=== PATIENT | female | born 1955 | race Caucasian/White ===

== ENCOUNTER → 2016-06-18 | Outpatient (CLI) | payer OTHER ==
[~2016-06-18] MED LIST: /FEXO18TA OR; CELE40TA OR; CETI5TAB2 OR; IBUP600T OR; LEVOXYL25 MCG OR; LORA2TAB OR; TRAM50TA2 OR; VENTAER IN
--- NOTE | 2016-06-18 12:12 | ECGEPIP ---
Stationary ECG Study [facility] Test Date: 2016-06-18 Pat Name: FAMILIA VILLALOBOS Department: Room: - Gender: F [employer] Hand: [facility] : 1955 Requested By: Sachi Ibanez Order Number: [id number] Reading MD: [place] Woodward Measurements Intervals [place] Rate: 67 P: 65 VA: 181 QRS: -33 QRSD: 94 T: 44 QT: 410 QTc: 434 Interpretive Statements SINUS RHYTHM lowvoltage PRECORD LEADS NEW LEFT AXIS DEVIATION ANTERIOR MYOCARDIAL INFARCTION, PROBABLY OLD suspected PRWP MORE SO THAN 09/20/13 Electronically Signed On 06-18-2016 12:12:21 EST by [place] Woodward
--- NOTE | 2016-06-18 12:26 | REP ---
Chest two views HISTORY: Chest pain Comparison: 09/08/2012 The lungs are clear. The heart is normal in size. The pulmonary vasculature is normal in appearance. The bony structure is intact. IMPRESSION: No acute disease. Signed by Vipin Atkins MD 06/18/2016 12:17 P
== END ==
LOC: M EKG 11:44
PROVIDERS: ATTEND Nurse Practitioner Adult Health
DX: R07.89 Other chest pain (principal)

== ENCOUNTER 2016-10-07 21:38 | Emergency (ER) | payer OTHER ==
[~2016-10-07] VITALS: Ht 167.6 cm; Wt 90.5 kg
[2016-10-07] MEDS ORDERED: ASPIRIN 81 MG CHEW TABLET PO ONE (22:30)
[2016-10-07] MEDS ORDERED: PANTOPRAZOLE 40MG INJ (PROTONIX) (C9113) IV ONE (22:30)
[2016-10-07 23:02] LABS: BASO # 0.1 K/mm3 (0.0-0.2); BASO % 0.7 % (0.0-1.0); EOS # 0.2 K/mm3 (0.0-0.50); EOS % 2.1 % (0.0-3.0); LARGE UNSTAINED CELL # 0.2 K/mm3 (0.0-0.4); LARGE UNSTAINED CELL % 1.8 % (0.0-4.0); LYMPH % 28.2 % (24.0-44.0); MEAN CORPUSCULAR HEMOGLOBIN 29.7 pg (27.0-33.0); MEAN CORPUSCULAR HGB CONC 34.5 g/dl (32.0-36.5); MEAN CORPUSCULAR VOLUME 86.4 fl (80.0-96.0); MONO # 0.7 K/mm3 (0.0-0.8); NEUTROPHILS # 5.9 K/mm3 (1.8-7.7); NEUTROPHILS % 60.2 % (36.0-66.0); PLATELET COUNT, AUTOMATED 290 k/mm3 (150-450); RED CELL DISTRIBUTION WIDTH 12.7 % (11.5-14.5); WHITE BLOOD COUNT 9.9 K/mm3 (4.0-10.0)
[2016-10-07 23:09] LABS: INR 0.96
[2016-10-07 23:34] LABS: ERYTHROCYTE SEDIMENTATION RATE 4 mm/hr (0-30)
[2016-10-07 23:44] LABS: ALBUMIN 4.1 GM/DL (3.2-5.2); ALBUMIN/GLOBULIN RATIO 1.46 (1.00-1.93); ALT/SGPT 36 U/L (12-78); ANION GAP 6 MEQ/L (8-16); AST/SGOT 48 U/L (15-37); BILIRUBIN,DIRECT 0.2 MG/DL (0.0-0.2); BILIRUBIN,TOTAL 0.6 MG/DL (0.2-1.0); BLOOD UREA NITROGEN 20 MG/DL (7-18); CALCIUM LEVEL 8.9 MG/DL (8.8-10.2); CARBON DIOXIDE LEVEL 26 MEQ/L (21-32); CHLORIDE LEVEL 106 MEQ/L (98-107); CREATININE FOR GFR 1.14 MG/DL (0.55-1.02); GLOMERULAR FILTRATION RATE 51.6 (>45); GLUCOSE, FASTING 106 MG/DL (80-110); SODIUM LEVEL 138 MEQ/L (136-145); TOTAL PROTEIN 6.9 GM/DL (6.4-8.2)
[2016-10-07 23:56] LABS: ALKALINE PHOSPHATASE 92 U/L (45-117); FREE T4 1.19 NG/DL (0.76-1.46)
[2016-10-08] MEDS ORDERED: SODIUM CHLORIDE 0.9% 1000 ML IV ONE
[2016-10-08] MEDS ORDERED: IBUP200T45 PO (00:33)
[2016-10-08] MEDS ORDERED: LEVO200T4 PO (00:33)
[2016-10-08] MEDS ORDERED: SIMV20TA2 PO (00:33)
[2016-10-08] MEDS ORDERED: ASPI81TA21 PO (00:33)
[2016-10-08] MEDS ORDERED: SIMV40TA2 PO (00:33)
[2016-10-08] MEDS ORDERED: CELE20TA PO (00:36)
[2016-10-08] MEDS ORDERED: LORA1TAB12 PO (00:36)
[2016-10-08 00:42] LABS: MAGNESIUM LEVEL 2.3 MG/DL (1.8-2.4)
[2016-10-08] MEDS: NS 1,000 ML IV SCH (02:20)
[2016-10-08] MEDS ORDERED: NS 500 ML IV ONE (02:30)
--- NOTE | 2016-10-08 02:57 | CR ---
DATE OF CONSULTATION: 10/07/2016 PRIMARY CARE PROVIDER: MITCH Ho. REQUESTING CONSULTATION PHYSICIAN: Maritza Monroy MD. REASON FOR CONSULTATION: Possible chest tightness and PAC. HISTORY OF PRESENT ILLNESS: The patient is a 61-year-old white female with several chronic medical conditions including high cholesterol presented to the emergency room (ER) for chest tightness for the last couple of days. History is provided by herself. Per her, she lost her daughter a few days ago. Since then , she said she was very sad and anxious. She did not eat or drink too much at home and also she felt tightness in her chest and decided to come to the ER for further evaluation. She states did not have real chest pain. Also she states she had nuclear cardiac stress test this year, which was normal. In the ER, her initial workup was not significant except increased CK level up to 1300. Her troponin was negative. Her EKG showed multiple PACs, but no acute ST-T wave change and medicine service called for possible admission for observing. REVIEW OF SYSTEMS: Denies fever. No chills. She has mild headache. No blurry vision. No shortness of breath. No nausea. No vomiting. No abdominal pain. No diarrhea. No tingling, numbness, weakness in the arms, lower extremities. All other systems reviewed, but negative. PAST MEDICAL HISTORY: 1. Dyslipidemia. 2. Anxiety/depression. 3. Hypothyroidism. PAST SURGICAL HISTORY: 1. Tubal ligation. 2. Left knee surgery. ALLERGIES: Allergic to SULFA DRUGS, OXYCODONE, NITROFURANTOIN. MEDICATIONS: - aspirin 81 mg by mouth daily - Synthroid 200 mcg daily - simvastatin 40 mg by mouth daily - citalopram 20 mg by mouth daily - lorazepam 1 mg by mouth as needed FAMILY HISTORY: Father has history of stroke and mother had a history of heart attack, but no family history of premature coronary artery disease. PHYSICAL EXAMINATION: VITAL SIGNS: Temperature 98, heart rate 74, respirations 14, blood pressure 149/66, oxygen saturation 97% on room air. GENERAL: She is awake, alert, oriented times three. She is not in acute distress. HEENT: Atraumatic. Pupils are equal, round and reactive to light. No jaundice. Extraocular muscles intact. Ears, nose, and throat are normal. LUNGS: Clear, no wheezing, no crackles. HEART: S1, S2, regular. No murmur. ABDOMEN: Soft. Bowel sounds positive. Not distended, nontender. LOWER EXTREMITIES: No edema in her bilateral lower extremities. NEUROLOGICAL: Nonfocal. SKIN: No rash. PSYCHOLOGICAL: No acute psychosis, but mildly depressed. DIAGNOSTIC LABORATORY STUDIES: Including the following: Sodium 138, potassium 4.1, chloride 106, bicarbonate 26, BUN 20, creatinine 1.4, glucose 106. Liver function test was normal. CK level was high at 1300. Troponin negative. CBC and differential: WBC 9.9, hemoglobin and hematocrit 15.6/45, platelets 290. EKG reviewed showed frequent PACs, but no acute ST-T wave change. ASSESSMENT AND PLAN: This is a 61-year-old female with history of anxiety, depression, high cholesterol, presented to the emergency room (ER) with chest tightness after she lost her daughter a few days ago. Her workup in the ER was insignificant except mild dehydration and mild rhabdomyolysis. Initially, she presented with multiple PACs, which was resolved after intravenous (IV) hydration. She does not have real chest pain. Per her, she had nuclear stress test this year, which was negative. Her rhabdomyolysis, as well as PACs likely related to dehydration and poor oral intake recently due to loss of her daughter. Now she is medically stable. I do not think she needs to be admitted for observation. Will discuss with the ER attending and she can be discharged home from ER directly. The plan was also discussed with the patient and her daughter, who agree with the plan. TRUDI
[2016-10-08 03:26] VITALS: BP 137/72
--- NOTE | 2016-10-08 08:04 | REP ---
Clinical: chest pain. Comparison: 06/18/2016. Technique: PA and lateral. Findings: The mediastinum and cardiac silhouette are normal. The lung haque are clear and without acute consolidation, effusion, or pneumothorax. The skeletal structures are intact and normal. Impression: 1. No acute cardiopulmonary process. Signed by Daljit Muir MD 10/08/2016 07:55 A
--- NOTE | 2016-10-09 07:18 | ECGEPIP ---
Stationary ECG Study [facility] - ED Test Date: 2016-10-07 Pat Name: FAMILIA VILLALOBOS Department: Room: - Gender: F Telephonic Rn: mery : 1955 Requested By: ADRIAN GARCIA Order Number: [id number] Reading MD: Arlin Cheney Measurements Intervals [place] Rate: 84 P: 71 SD: 182 QRS: -24 QRSD: 104 T: 48 QT: 374 QTc: 442 Interpretive Statements SINUS RHYTHM WITH FREQUENT VENTRICULAR PREMATURE COMPLEXES IN A BIGEMINAL PATTERN BORDERLINE LEFT AXIS DEVIATION INCOMPLETE RIGHT BUNDLE BRANCH BLOCK ABNORMAL RHYTHM ECG ? PRIOR ANTERIOR INFARCT INCREASED ECTOPY COMPARED 06/18/16 Electronically Signed On 10-09-2016 7:18:06 EDT by Arlin Cheney
== END 2016-10-08 03:42 | disposition home or self-care (01) ==
LOC: M ED 21:38
DX: I49.3 Ventricular premature depolarization (principal); R00.2 Palpitations; E03.9 Hypothyroidism, unspecified; R07.9 Chest pain, unspecified; I25.2 Old myocardial infarction; F32.9 Major depressive disorder, single episode, unspecified; F41.9 Anxiety disorder, unspecified; K21.9 Gastro-esophageal reflux disease without esophagitis; G47.33 Obstructive sleep apnea (adult) (pediatric); Z79.82 Long term (current) use of aspirin; Z79.899 Other long term (current) drug therapy; Z88.1 Allergy status to other antibiotic agents; Z88.5 Allergy status to narcotic agent; Z88.6 Allergy status to analgesic agent; Z88.8 Allergy status to other drugs, medicaments and biological substances

== ENCOUNTER → 2016-11-07 | Outpatient (CLI) | payer OTHER ==
[~2016-11-07] MED LIST changes: +ACET300T52; +ASPI81TA21 PO; +CELE20TA PO; +IBUP200T45 PO; +LEVO200T4 PO; +LORA1TAB12 PO; +SIMV20TA2 PO; +SIMV40TA2 PO; +VALI5TAB PO
--- NOTE | 2016-11-08 02:20 | REP ---
Clinical: Trauma. Technique: AP, lateral, bilateral oblique views of the right ankle. Findings: Lateral soft tissue swelling consistent with inversion injury. No acute fracture or dislocation. Joint spaces and ankle mortise are intact. Lateral view demonstrates moderate calcaneal heal spur. Impression: Lateral soft tissue swelling. No acute fracture or dislocation. Signed by Daljit Muir MD 11/08/2016 02:12 A
== END ==
LOC: M LRY 18:02
PROVIDERS: ATTEND Nurse Practitioner Family
DX: S99.911A Unspecified injury of right ankle, initial encounter (principal); W18.30XA Fall on same level, unspecified, initial encounter; Y92.009 Unspecified place in unspecified non-institutional (private) residence as the place of occurrence of the external cause

== ENCOUNTER 2016-12-30 14:01 | Emergency (ER) | payer OTHER ==
[~2016-12-30] VITALS: Ht 167.6 cm; Wt 86.8 kg
[~2016-12-30 14:01] MED LIST changes: -ACET300T52; -VALI5TAB PO
[2016-12-30] MEDS ORDERED: ACET300T52 (14:08)
[2016-12-30] MEDS ORDERED: VALI5TAB PO (18:12)
[2016-12-30 18:27] VITALS: BP 131/78
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
== END 2016-12-30 18:30 | disposition home or self-care (01) ==
LOC: M ED 14:01
DX: S16.1XXA Strain of muscle, fascia and tendon at neck level, initial encounter (principal); S60.212A Contusion of left wrist, initial encounter; M25.512 Pain in left shoulder; V43.52XA Car driver injured in collision with other type car in traffic accident, initial encounter; Y92.410 Unspecified street and highway as the place of occurrence of the external cause; Y93.9 Activity, unspecified; Y99.9 Unspecified external cause status; I25.10 Atherosclerotic heart disease of native coronary artery without angina pectoris; I25.2 Old myocardial infarction; E03.9 Hypothyroidism, unspecified; F41.9 Anxiety disorder, unspecified; F32.9 Major depressive disorder, single episode, unspecified; M75.82 Other shoulder lesions, left shoulder; Z79.82 Long term (current) use of aspirin; Z79.899 Other long term (current) drug therapy; Z88.8 Allergy status to other drugs, medicaments and biological substances; Z88.5 Allergy status to narcotic agent; Z88.2 Allergy status to sulfonamides; Z88.1 Allergy status to other antibiotic agents

== ENCOUNTER → 2017-02-28 | Outpatient (CLI) | payer OTHER ==
[~2017-02-28] MED LIST changes: +ACET300T52; +VALI5TAB PO
--- NOTE | 2017-02-28 15:24 | REPMRS ---
Patient History The patient states she had a clinical breast exam in 02/2017. Patient is postmenopausal. No known family history of cancer. Digital Woman Screen Mammo: February 28, 2017 - Exam #: [id number] Bilateral CC and MLO view(s) were taken. Technologist: Hilaria Ruiz, Technologist Prior study comparison: July 09, 2015, digital woman screen mammo performed at [facility] to [facility]. January 30, 2014, digital woman screen mammo performed at [facility] to [facility]. FINDINGS: There are scattered fibroglandular densities. There has been no change in the appearance of the mammogram from the prior studies. There is a mild amount of residual fibroglandular tissue which is fairly symmetric. There is no interval development of dominant mass, architectural distortion, or clustered microcalcification suggestive of malignancy. ASSESSMENT: BI-RADS/ACR category 1 mammogram. Negative. Recommendation Routine screening mammogram in 1 year (for women over age 40). This mammogram was interpreted with the aid of an FDA-approved computer-aided dectection system. Electronically Signed By: Higinio Cordero MD 02/28/17 1817
== END ==
LOC: M WHC 13:45
PROVIDERS: ATTEND Nurse Practitioner Family
DX: Z12.31 Encounter for screening mammogram for malignant neoplasm of breast (principal)

== ENCOUNTER → 2017-02-28 | Outpatient (REF) | payer OTHER | LOC: M SFHCWAGY 14:08 | PROVIDERS: ATTEND Nurse Practitioner Family | DX: Z12.4 Encounter for screening for malignant neoplasm of cervix (principal); Z12.31 Encounter for screening mammogram for malignant neoplasm of breast ==

== ENCOUNTER → 2017-05-26 | Outpatient (REF) | payer OTHER | LOC: M LAB REF 18:38 | DX: J11.1 Influenza due to unidentified influenza virus with other respiratory manifestations (principal); J02.9 Acute pharyngitis, unspecified ==

== ENCOUNTER 2017-06-27 09:56 | Day surgery (SDC) | payer OTHER ==
[2017-06-27] MEDS ORDERED: NS 1,000 ML IV (10:45)
[2017-06-27] MEDS ORDERED: PROPOFOL 500 MG/50 ML VIAL As Ordered (10:53)
[2017-06-27] MEDS ORDERED: LIDOCAINE 2% INJ 100 MG/5 ML SDV (FOR ANES.) As Ordered (10:53)
== END 2017-06-27 12:52 | disposition home or self-care (01) ==
LOC: M OPP 09:56
DX: Z12.11 Encounter for screening for malignant neoplasm of colon (principal); Z86.010 Personal history of colon polyps; K64.8 Other hemorrhoids; K21.0 Gastro-esophageal reflux disease with esophagitis; K22.8 Other specified diseases of esophagus; K29.70 Gastritis, unspecified, without bleeding; R00.8 Other abnormalities of heart beat; R07.89 Other chest pain; I25.6 Silent myocardial ischemia; E78.5 Hyperlipidemia, unspecified; E03.9 Hypothyroidism, unspecified; R12 Heartburn; M54.30 Sciatica, unspecified side; F41.9 Anxiety disorder, unspecified; F32.9 Major depressive disorder, single episode, unspecified; Z78.0 Asymptomatic menopausal state; G47.30 Sleep apnea, unspecified; R06.83 Snoring; N87.9 Dysplasia of cervix uteri, unspecified; Z88.1 Allergy status to other antibiotic agents; Z88.5 Allergy status to narcotic agent; Z88.2 Allergy status to sulfonamides; Z79.82 Long term (current) use of aspirin; Z79.899 Other long term (current) drug therapy
CPT/HCPCS: G0105

== ENCOUNTER → 2017-09-23 | Outpatient (CLI) | payer OTHER | LOC: M RAD 15:42 | DX: M53.3 Sacrococcygeal disorders, not elsewhere classified (principal); M51.36 Other intervertebral disc degeneration, lumbar region | CPT/HCPCS: 72114 ==

== ENCOUNTER → 2017-10-20 | Outpatient (REF) | payer OTHER ==
[2017-10-20 13:38] LABS: FREE T4 1.72 NG/DL (0.76-1.46); THYROID STIMULATING HORMONE < 0.005 uIU/ML (0.358-3.740)
== END ==
LOC: M SFHCPLAZ 11:05
DX: E03.9 Hypothyroidism, unspecified (principal)

== ENCOUNTER 2017-12-15 07:57 | Emergency (ER) | payer OTHER ==
[2017-12-15] MEDS: ACETAMINOPHEN 325 MG TAB PO (09:27)
[2017-12-15] MEDS: cefTRIAXone SOD 2 GM in D5W MINI-BAG PLUS 50 ML IV (09:28)
[2017-12-15] MEDS: KETOROLAC 30 MG/ML VIAL (J1885) IV (09:32)
[2017-12-15 09:36] LABS: BASO # 0.1 10^3/uL (0.0-0.2); BASO % 0.4 % (0.0-1.0); EOS % 0.1 % (0.0-3.0); HEMATOCRIT 46.9 % (36.0-47.0); HEMOGLOBIN 15.6 g/dl (12.0-15.5); IMMATURE GRANULOCYTE % 0.4 % (0-3.0); LYMPH % 1.6 % (24.0-44.0); MEAN CORPUSCULAR HEMOGLOBIN 28.3 pg (27.0-33.0); MEAN CORPUSCULAR HGB CONC 33.3 g/dl (32.0-36.5); MEAN CORPUSCULAR VOLUME 85.1 fl (80.0-96.0); MONO # 0.6 10^3/uL (0.0-0.8); MONO % 4.5 % (0.0-5.0); NEUTROPHILS # 12.7 10^3/uL (1.8-7.7); PLATELET COUNT, AUTOMATED 281 10^3/uL (150-450); RED BLOOD COUNT 5.51 10^6/uL (4.00-5.40); RED CELL DISTRIBUTION WIDTH 13.2 % (11.5-14.5); WHITE BLOOD COUNT 13.7 10^3/uL (4.0-10.0)
[2017-12-15 09:59] LABS: ALBUMIN 3.7 GM/DL (3.2-5.2); ALBUMIN/GLOBULIN RATIO 0.97 (1.00-1.93); ALKALINE PHOSPHATASE 142 U/L (45-117); ALT/SGPT 43 U/L (12-78); ANION GAP 6 MEQ/L (8-16); AST/SGOT 42 U/L (7-37); BILIRUBIN,DIRECT 0.2 MG/DL (0.0-0.2); BILIRUBIN,TOTAL 0.5 MG/DL (0.2-1.0); BLOOD UREA NITROGEN 12 MG/DL (7-18); CALCIUM LEVEL 8.8 MG/DL (8.8-10.2); CARBON DIOXIDE LEVEL 27 MEQ/L (21-32); CHLORIDE LEVEL 104 MEQ/L (98-107); CREATININE FOR GFR 1.09 MG/DL (0.55-1.30); GLOMERULAR FILTRATION RATE 54.1 (>45); GLUCOSE, FASTING 132 MG/DL (70-100); SODIUM LEVEL 137 MEQ/L (136-145); TOTAL PROTEIN 7.5 GM/DL (6.4-8.2)
[2017-12-15 10:01] LABS: LYMPH # 0.2 10^3/uL (1.5-4.5); POSITIVE DIFF POS FLAG
[2017-12-15 10:08] LABS: LACTIC ACID SEPSIS PROTOCOL 1.6 MMOL/L (0.4-2.0)
[2017-12-15] MEDS: DILUENT IV (10:11)
[2017-12-15] MEDS: NS IV (10:11)
[2017-12-15] MEDS ORDERED: ISOVUE-370 76% 100ML VIAL (Q9967) As Ordered (10:39)
[2017-12-15 11:28] LABS: KETONE, URINE AUTO RFX NEGATIVE (NEGATIVE); NITRITE, URINE AUTO RFX NEGATIVE (NEGATIVE); RBC, URINE AUTO RFX 1 /HPF (0-3); SPECIFIC GRAVITY UR AUTO RFX 1.044 (1.002-1.035); SQUAM EPITHELIAL CELL UR AURFX 2 /HPF (0-6)
[2017-12-15 11:29] LABS: LEUKOCYTE ESTERASE UR AUTO RFX TRACE (NEGATIVE); WBC, URINE AUTO RFX 14 /HPF (0-3)
== END 2017-12-15 13:11 | disposition home or self-care (01) ==
LOC: M ED 07:57
DX: N30.90 Cystitis, unspecified without hematuria (principal); E78.9 Disorder of lipoprotein metabolism, unspecified; E03.9 Hypothyroidism, unspecified; K21.9 Gastro-esophageal reflux disease without esophagitis; G47.33 Obstructive sleep apnea (adult) (pediatric); I25.10 Atherosclerotic heart disease of native coronary artery without angina pectoris; F41.9 Anxiety disorder, unspecified; Z79.899 Other long term (current) drug therapy; Z79.82 Long term (current) use of aspirin; Z79.890 Hormone replacement therapy; Z88.1 Allergy status to other antibiotic agents; Z88.2 Allergy status to sulfonamides; Z88.5 Allergy status to narcotic agent
CPT/HCPCS: J0696

== ENCOUNTER → 2018-03-08 | Outpatient (CLI) | payer OTHER | LOC: M WHC 13:11 | DX: Z12.31 Encounter for screening mammogram for malignant neoplasm of breast (principal); R92.1 Mammographic calcification found on diagnostic imaging of breast | CPT/HCPCS: 77067 ==

== ENCOUNTER → 2018-05-26 | Outpatient (REF) | payer OTHER ==
[~2018-05-26] MED LIST changes: -ACET300T52; +ACET300T52 PO; +CIPR-249 PO
[2018-05-26 16:29] LABS: FREE T4 1.19 NG/DL (0.76-1.46); THYROID STIMULATING HORMONE 2.07 uIU/ML (0.358-3.740)
== END ==
LOC: M SFHCPLAZ 14:54
PROVIDERS: ATTEND Family Medicine
DX: E03.9 Hypothyroidism, unspecified (principal)

== ENCOUNTER 2018-05-29 11:30 | Outpatient (RCR) | payer OTHER | END 2018-06-08 | LOC: M PT 11:30 | PROVIDERS: ATTEND Physician Assistant | DX: M51.36 Other intervertebral disc degeneration, lumbar region (principal) ==

== ENCOUNTER → 2018-06-09 | Outpatient (CLI) | payer OTHER ==
--- NOTE | 2018-06-09 13:07 | REP ---
Clinical: Thyromegaly by physical examination. Technique: Real time simms scale and color evaluation using linear high frequency transducer. Comparison: 10/07/2017 Findings: The thyroid gland is heterogeneous but otherwise normal in contour and size. No nodule or cystic lesion is identified. Right lobe measures 2.9 x 0.8 x 1.5 cm. Left lobe measures 2.6 x 0.9 x 1.0 cm. The isthmus measures 2.4 mm in width. Impression: Relatively normal thyroid gland. Electronically Signed by Daljit Muir MD 06/09/2018 12:59 P
== END ==
LOC: M RAD 12:31
PROVIDERS: ATTEND Family Medicine
DX: E01.0 Iodine-deficiency related diffuse (endemic) goiter (principal)

== ENCOUNTER 2018-06-26 13:15 | Outpatient (RCR) | payer OTHER | END 2018-07-09 | LOC: M PT 13:15 | PROVIDERS: ATTEND Physician Assistant | DX: M51.36 Other intervertebral disc degeneration, lumbar region (principal) ==

== ENCOUNTER → 2018-11-27 | Outpatient (REF) | payer OTHER ==
[2018-11-27 17:04] LABS: ALBUMIN 3.7 GM/DL (3.2-5.2); ALT/SGPT 31 U/L (12-78); BILIRUBIN,TOTAL 0.4 MG/DL (0.2-1.0); BLOOD UREA NITROGEN 18 MG/DL (7-18); CALCIUM LEVEL 9.1 MG/DL (8.8-10.2); CARBON DIOXIDE LEVEL 28 MEQ/L (21-32); CHLORIDE LEVEL 108 MEQ/L (98-107); CHOLESTEROL LEVEL 209 MG/DL (<200); CHOLESTEROL RISK RATIO 3.317 (<5); CREATININE FOR GFR 0.94 MG/DL (0.55-1.30); GLOMERULAR FILTRATION RATE > 60.0 (>45); GLUCOSE, FASTING 101 MG/DL (70-100); HDL CHOLESTEROL 63 MG/DL (>40); LDL CHOLESTEROL 117 MG/DL (<100); NON-HDL-C 146 MG/DL; POTASSIUM SERUM 4.6 MEQ/L (3.5-5.1); SODIUM LEVEL 142 MEQ/L (136-145); TOTAL PROTEIN 6.5 GM/DL (6.4-8.2); TRIGLYCERIDES LEVEL 144 MG/DL (<150)
== END ==
LOC: M SFHCPLAZ 12:31
PROVIDERS: ATTEND Family Medicine
DX: Z00.00 Encounter for general adult medical examination without abnormal findings (principal); Z13.1 Encounter for screening for diabetes mellitus; Z13.220 Encounter for screening for lipoid disorders; E03.9 Hypothyroidism, unspecified

== ENCOUNTER → 2019-05-09 | Outpatient (CLI) | payer OTHER ==
[~2019-05-09] MED LIST changes: -LORA1TAB12 PO; +LORA1TAB4 PO; -SIMV20TA2 PO; +SIMV20TA22 PO; -SIMV40TA2 PO; +SIMV40TA20 PO
[2019-05-09 12:06] LABS: BASO # 0.1 10^3/uL (0.0-0.2); BASO % 0.9 % (0.0-1.0); EOS # 0.4 10^3/uL (0.0-0.5); EOS % 5.2 % (0.0-3.0); HEMATOCRIT 47.1 % (36.0-47.0); LYMPH # 2.3 10^3/uL (1.5-5.0); LYMPH % 30.1 % (24.0-44.0); MEAN CORPUSCULAR HEMOGLOBIN 28.4 pg (27.0-33.0); MEAN CORPUSCULAR HGB CONC 31.8 g/dl (32.0-36.5); MEAN CORPUSCULAR VOLUME 89.2 fl (80.0-96.0); MONO # 0.6 10^3/uL (0.0-0.8); MONO % 7.5 % (0.0-5.0); NEUTROPHILS # 4.2 10^3/uL (1.5-8.5); NEUTROPHILS % 55.9 % (36.0-66.0); PLATELET COUNT, AUTOMATED 310 10^3/uL (150-450); RED BLOOD COUNT 5.28 10^6/uL (4.00-5.40); WHITE BLOOD COUNT 7.5 10^3/uL (4.0-10.0)
[2019-05-09 12:26] LABS: HEMOGLOBIN A1c 6.1 %
[2019-05-09 12:38] LABS: ALBUMIN 3.7 GM/DL (3.2-5.2); ALT/SGPT 30 U/L (12-78); BILIRUBIN,TOTAL 0.5 MG/DL (0.2-1.0); BLOOD UREA NITROGEN 17 MG/DL (7-18); CALCIUM LEVEL 8.7 MG/DL (8.8-10.2); CARBON DIOXIDE LEVEL 30 MEQ/L (21-32); CHLORIDE LEVEL 106 MEQ/L (98-107); CHOLESTEROL LEVEL 231 MG/DL (<200); CHOLESTEROL RISK RATIO 3.666 (<5); CREATININE FOR GFR 0.93 MG/DL (0.55-1.30); FREE T4 1.34 NG/DL (0.76-1.46); GLOMERULAR FILTRATION RATE > 60.0 (>45); GLUCOSE, FASTING 95 MG/DL (70-100); HDL CHOLESTEROL 63 MG/DL (>40); LDL CHOLESTEROL 135 MG/DL (<100); NON-HDL-C 168 MG/DL; POTASSIUM SERUM 4.4 MEQ/L (3.5-5.1); SODIUM LEVEL 140 MEQ/L (136-145); TOTAL PROTEIN 6.3 GM/DL (6.4-8.2); TRIGLYCERIDES LEVEL 165 MG/DL (<150)
--- NOTE | 2019-05-11 00:44 | ECGEPIP ---
[facility] Test Date: 2019-05-09 Pat Name: FAMILIA VILLALOBOS Department: Room: - Gender: Female Medical Historian: IVA : 1955 Requested By: Shamar Laboy Order Number: [id number] Reading MD: Raul Sprague Measurements Intervals [place] Rate: 64 P: 67 ID: 188 QRS: -24 QRSD: 96 T: 36 QT: 407 QTc: 422 Interpretive Statements SINUS RHYTHM BORDERLINE LEFT AXIS DEVIATION INCOMPLETE RIGHT BUNDLE BRANCH BLOCK MOST RECENT TRACING ON 10/07/2016 AT 10:00 P.M.. ISOLATED PVCS IN [facility] WERE NOTED Electronically Signed on 05-11-2019 0:43:40 EST by Raul Sprague
== END ==
LOC: M LAB 10:57
PROVIDERS: ATTEND Psychiatry & Neurology Child & Adolescent Psychiatry
DX: F32.9 Major depressive disorder, single episode, unspecified (principal); Z86.79 Personal history of other diseases of the circulatory system

== ENCOUNTER → 2020-03-28 | Outpatient (REF) | payer OTHER | LOC: M SFHCWAGY 12:39 | PROVIDERS: ATTEND Nurse Practitioner Family | DX: Z12.4 Encounter for screening for malignant neoplasm of cervix (principal); Z01.419 Encounter for gynecological examination (general) (routine) without abnormal findings ==

== ENCOUNTER → 2020-03-28 | Outpatient (CLI) | payer OTHER ==
--- NOTE | 2020-03-28 12:41 | REPMRS ---
Patient History The patient states she had a clinical breast exam in 03/2020 No known family history of cancer. Digital Woman Screen Mammo: March 28, 2020 - Exam #: [id number] Bilateral CC and MLO view(s) were taken. Technologist: Jhoana Vaughn, Technologist Prior study comparison: March 08, 2018, bilateral digital woman screen mammo performed at [facility]. February 28, 2017, digital woman screen mammo performed at [facility]. July 09, 2015, digital woman screen mammo performed at [facility]. FINDINGS: There are scattered fibroglandular densities. The Volpara volumetric breast density category is:B. There has been no change in the appearance of the mammogram from the prior studies. There is a mild amount of scattered fibroglandular density which is fairly symmetric. There is no interval development of dominant mass, architectural distortion, or grouped microcalcification suggestive of malignancy. 3-D tomosynthesis shows no additional findings. Assessment: BI-RADS/ACR category 1 mammogram. Negative Mammogram. Recommendation Routine screening mammogram of both breasts in 1 year (for women over age 40). This patient's [facility] Lifetime Breast Cancer Risk is estimated at 5.6 %. This mammogram was interpreted with the aid of an FDA-approved computer-aided dectection system. Electronically Signed By: Phil Hawkins MD 03/28/20 [id number]
== END ==
LOC: M WHC 10:18
PROVIDERS: ATTEND Nurse Practitioner Family
DX: Z12.31 Encounter for screening mammogram for malignant neoplasm of breast (principal)

== ENCOUNTER → 2020-04-28 | Outpatient (CLI) | payer OTHER ==
--- NOTE | 2020-04-29 07:20 | REP ---
INDICATION: R10.31 RLQ ABDOMINAL PAIN COMPARISON: 11/27/2013 TECHNIQUE: Transabdominal pelvic ultrasound followed by transvaginal examination for better evaluation of the endometrium and adnexa. FINDINGS: Bladder is unremarkable and measures 7.1 x 5.9 x 6.0 cm. Heterogeneous uterus measures 6.4 x 2.8 x 3.8 cm. The endometrial complex measures 4.1 mm thickness. Small nabothian cysts in the cervical region measure up to 7 mm. Bilateral ovaries are normal in appearance. Right ovary measures 1.2 x 0.9 x 0.9 cm; left ovary measures 1.5 x 1.0 x 0.9 cm. No pelvic fluid or adnexal mass lesion. IMPRESSION: Essentially normal pelvic ultrasound. <Electronically signed by Daljit Muir > 04/29/20 0740
== END ==
LOC: M WHC 11:40
PROVIDERS: ATTEND Nurse Practitioner Family
DX: R10.31 Right lower quadrant pain (principal)

== ENCOUNTER 2020-12-10 14:20 | Emergency (ER) | payer MEDICARE, OTHER ==
[~2020-12-10] VITALS: Ht 175.3 cm; Wt 89.3 kg
[2020-12-10 20:02] LABS: BASO % 0.4 % (0.0-1.0); EOS % 0.1 % (0.0-3.0); HEMATOCRIT 50.6 % (36.0-47.0); HEMOGLOBIN 16.3 g/dl (12.0-15.5); LYMPH # 2.1 10^3/uL (1.5-5.0); LYMPH % 28.7 % (24.0-44.0); MEAN CORPUSCULAR HEMOGLOBIN 29.1 pg (27.0-33.0); MEAN CORPUSCULAR HGB CONC 32.2 g/dl (32.0-36.5); MEAN CORPUSCULAR VOLUME 90.4 fl (80.0-96.0); MONO # 0.8 10^3/uL (0.0-0.8); MONO % 10.5 % (2.0-8.0); NEUTROPHILS # 4.4 10^3/uL (1.5-8.5); PLATELET COUNT, AUTOMATED 278 10^3/uL (150-450); WHITE BLOOD COUNT 7.4 10^3/uL (4.0-10.0)
[2020-12-10] MEDS ORDERED: ACETAMINOPHEN 325 MG TAB PO ONE (20:05)
[2020-12-10 20:35] LABS: RSV AMPLIFICATION NEGATIVE (NEGATIVE)
[2020-12-10 20:47] LABS: ALBUMIN 3.7 GM/DL (3.2-5.2); BILIRUBIN,TOTAL 0.5 MG/DL (0.2-1.0); CALCIUM LEVEL 8.8 MG/DL (8.8-10.2); CREATININE FOR GFR 1.04 MG/DL (0.55-1.30); GLOMERULAR FILTRATION RATE 56.6 (>45); POTASSIUM SERUM 4.5 MEQ/L (3.5-5.1); TOTAL PROTEIN 7.2 GM/DL (6.4-8.2)
[2020-12-10] MEDS ORDERED: ALBUTEROL 90 MCG/ACT 8GM HFA INHALER INH PRN (23:55)
[2020-12-10] MEDS ORDERED: CASIRIVIMAB/IMDEVIMAB 1,200 MG in NS 250 ML IV ONE (23:55)
[2020-12-10] MEDS ORDERED: EPINEPHrine INJ 1 MG/ML 1ML AMP IM PRN (23:55)
[2020-12-10] MEDS ORDERED: ALBUTEROL SULFATE 2.5 MG/0.5 ML INH NEB SOLN INH PRN (23:55)
[2020-12-10] MEDS ORDERED: diphenhydrAMINE 50MG/ML VIAL (J1200) IV PRN (23:55)
[2020-12-10] MEDS ORDERED: NS 1,000 ML IV SCH (23:55)
[2020-12-10] MEDS ORDERED: methylPREDNISolone 125MG 2ML VIAL IV PRN (23:55)
[2020-12-10] MEDS ORDERED: ACETAMINOPHEN TAB 650MG DOSE (2X325MG) PO PRN (23:55)
[2020-12-11 00:37] VITALS: BP 129/87
== END 2020-12-11 01:23 | disposition home or self-care (01) ==
LOC: M ED 14:20
DX: U07.1 COVID-19 (principal); R50.9 Fever, unspecified; Z88.1 Allergy status to other antibiotic agents; Z88.2 Allergy status to sulfonamides; Z88.5 Allergy status to narcotic agent; Z79.82 Long term (current) use of aspirin; Z79.899 Other long term (current) drug therapy
CPT/HCPCS: 36415; 80053; 81001; 83605; 85025; 87040; 87086; 87631; 99283; M0243

== ENCOUNTER 2020-12-11 02:12 | Outpatient (CLI) | payer MEDICARE, OTHER ==
[~2020-12-11] VITALS: Ht 165.1 cm; Wt 90.5 kg
[~2020-12-11 02:12] MED LIST changes: -IBUP200T45 PO; +IBUP200T46 PO
[2020-12-11] MEDS ORDERED: EPINEPHrine INJ 1 MG/ML 1ML AMP IM PRN (02:15)
[2020-12-11] MEDS ORDERED: ALBUTEROL SULFATE 2.5 MG/0.5 ML INH NEB SOLN INH PRN (02:15)
[2020-12-11] MEDS ORDERED: ALBUTEROL 90 MCG/ACT 8GM HFA INHALER INH PRN (02:15)
[2020-12-11] MEDS ORDERED: NS 1,000 ML IV SCH (02:15)
[2020-12-11] MEDS ORDERED: diphenhydrAMINE 50MG/ML VIAL (J1200) IV PRN (02:15)
[2020-12-11] MEDS ORDERED: methylPREDNISolone 125MG 2ML VIAL IV PRN (02:15)
[2020-12-11] MEDS ORDERED: CASIRIVIMAB/IMDEVIMAB 1,200 MG in NS 250 ML IV ONE (04:00)
[2020-12-11 04:20] VITALS: BP 118/62
[2020-12-11 04:50] VITALS: BP 103/63
[2020-12-11 05:20] VITALS: BP 108/65
[2020-12-11 05:50] VITALS: BP 112/67
[2020-12-11 06:20] VITALS: BP 111/59
[2020-12-11 08:45] VITALS: BP 100/57
== END 2020-12-11 09:20 | disposition home or self-care (01) ==
LOC: M OPCLI4 02:12 → M 4MAIN 02:12 → EDSTATUS 03:51 → M OPCLI4 09:20
PROVIDERS: ATTEND Internal Medicine
DX: U07.1 COVID-19 (principal); Z88.1 Allergy status to other antibiotic agents; Z88.2 Allergy status to sulfonamides; Z88.5 Allergy status to narcotic agent

== ENCOUNTER → 2020-12-22 | Outpatient (CLI) | payer MEDICARE, OTHER ==
[2020-12-22 15:41] LABS: CHOLESTEROL RISK RATIO 2.791 (<5); THYROID STIMULATING HORMONE 0.038 uIU/ML (0.358-3.740)
== END ==
LOC: M PLALAB 09:31
PROVIDERS: ATTEND Family Medicine
DX: E03.9 Hypothyroidism, unspecified (principal); E78.2 Mixed hyperlipidemia; R73.03 Prediabetes

== ENCOUNTER → 2021-03-30 | Outpatient (REF) | payer OTHER | LOC: M SFHCPLAZ 16:50 | PROVIDERS: ATTEND Physician Assistant | DX: R05.9 Cough, unspecified (principal) ==

== ENCOUNTER → 2021-03-30 | Outpatient (CLI) | payer OTHER | LOC: M PLAIMG 14:59 | PROVIDERS: ATTEND Physician Assistant | DX: R05.9 Cough, unspecified (principal) ==

== ENCOUNTER → 2021-05-26 | Outpatient (CLI) | payer MEDICARE | LOC: M PLALAB 10:22 | PROVIDERS: ATTEND Family Medicine | DX: E03.9 Hypothyroidism, unspecified (principal) ==

== ENCOUNTER → 2021-07-03 | Outpatient (CLI) | payer MEDICARE, OTHER | LOC: M PLALAB 14:02 | PROVIDERS: ATTEND Physician Assistant | DX: R35.0 Frequency of micturition (principal); E03.9 Hypothyroidism, unspecified ==

== ENCOUNTER → 2021-07-08 | Outpatient (CLI) | payer MEDICARE, OTHER | LOC: M PLAIMG 12:27 | PROVIDERS: ATTEND Physician Assistant | DX: J20.9 Acute bronchitis, unspecified (principal) ==

== ENCOUNTER → 2021-08-17 | Outpatient (REF) | payer MEDICARE, OTHER | LOC: M SFHCPLAZ 16:43 | PROVIDERS: ATTEND Physician Assistant | DX: R05.9 Cough, unspecified (principal); R50.9 Fever, unspecified ==

== ENCOUNTER → 2021-12-04 | Outpatient (CLI) | payer MEDICARE, OTHER | LOC: M PLAIMG 15:50 | PROVIDERS: ATTEND Physician Assistant | DX: M25.761 Osteophyte, right knee (principal) ==

== ENCOUNTER → 2021-12-19 | Outpatient (CLI) | payer MEDICARE | LOC: M RAD 14:33 | PROVIDERS: ATTEND Physician Assistant | DX: R42 Dizziness and giddiness (principal) ==

== ENCOUNTER → 2022-01-18 | Outpatient (CLI) | payer MEDICARE ==
[2022-01-18 14:01] LABS: BASO # 0.1 10^3/uL (0.0-0.2); BASO % 0.8 % (0.0-1.0); EOS # 0.2 10^3/uL (0.0-0.5); EOS % 2.5 % (0.0-3.0); HEMATOCRIT 47.7 % (36.0-47.0); HEMOGLOBIN 15.4 g/dl (12.0-15.5); LYMPH # 2.2 10^3/uL (1.5-5.0); LYMPH % 31.6 % (24.0-44.0); MEAN CORPUSCULAR HEMOGLOBIN 28.8 pg (27.0-33.0); MEAN CORPUSCULAR HGB CONC 32.3 g/dl (32.0-36.5); MEAN CORPUSCULAR VOLUME 89.3 fl (80.0-96.0); MONO # 0.5 10^3/uL (0.0-0.8); MONO % 7.6 % (2.0-8.0); NEUTROPHILS % 57.2 % (36.0-66.0); PLATELET COUNT, AUTOMATED 308 10^3/uL (150-450); RED BLOOD COUNT 5.34 10^6/uL (4.00-5.40); WHITE BLOOD COUNT 7.1 10^3/uL (4.0-10.0)
[2022-01-18 15:43] LABS: ALBUMIN 3.6 GM/DL (3.2-5.2); ALT/SGPT 25 U/L (12-78); BILIRUBIN,TOTAL 0.5 MG/DL (0.2-1.0); BLOOD UREA NITROGEN 16 MG/DL (7-18); CALCIUM LEVEL 9.1 MG/DL (8.8-10.2); CARBON DIOXIDE LEVEL 27 MEQ/L (21-32); CHLORIDE LEVEL 108 MEQ/L (98-107); CHOLESTEROL LEVEL 163 MG/DL (<200); CHOLESTEROL RISK RATIO 2.263 (<5); CREATININE FOR GFR 0.95 MG/DL (0.55-1.30); GLOMERULAR FILTRATION RATE > 60.0 (>45); GLUCOSE, FASTING 108 MG/DL (70-100); HDL CHOLESTEROL 72 MG/DL (>40); IRON (FE) 90 UG/DL (50-170); LDL CHOLESTEROL 70 MG/DL (<100); NON-HDL-C 91 MG/DL; PERCENT SATURATION 26.8 % (13.2-45.0); POTASSIUM SERUM 4.4 MEQ/L (3.5-5.1); SODIUM LEVEL 140 MEQ/L (136-145); TOTAL IRON BINDING CAPACITY 336 UG/DL (250-450); TOTAL PROTEIN 6.5 GM/DL (6.4-8.2); TRIGLYCERIDES LEVEL 105 MG/DL (<150)
[2022-01-18 16:07] LABS: TOTAL 25(OH) VITAMIN D 36.1 NG/ML (30.0-100.0)
== END ==
LOC: M RAD 12:41
PROVIDERS: ATTEND Physician Assistant
DX: K11.8 Other diseases of salivary glands (principal); E78.2 Mixed hyperlipidemia; R53.83 Other fatigue; E03.9 Hypothyroidism, unspecified; Z79.899 Other long term (current) drug therapy

== ENCOUNTER → 2022-02-22 | Outpatient (CLI) | payer MEDICAID, MEDICARE ==
[2022-02-22 15:14] LABS: BASO # 0.1 10^3/uL (0.0-0.2); EOS # 0.1 10^3/uL (0.0-0.5); EOS % 1.4 % (0.0-3.0); HEMATOCRIT 49.2 % (36.0-47.0); HEMOGLOBIN 15.7 g/dl (12.0-15.5); LYMPH # 2.5 10^3/uL (1.5-5.0); LYMPH % 28.1 % (24.0-44.0); MEAN CORPUSCULAR HEMOGLOBIN 28.3 pg (27.0-33.0); MEAN CORPUSCULAR HGB CONC 31.9 g/dl (32.0-36.5); MEAN CORPUSCULAR VOLUME 88.6 fl (80.0-96.0); MONO # 0.8 10^3/uL (0.0-0.8); MONO % 8.5 % (2.0-8.0); NEUTROPHILS # 5.4 10^3/uL (1.5-8.5); NEUTROPHILS % 60.8 % (36.0-66.0); PLATELET COUNT, AUTOMATED 354 10^3/uL (150-450); RED BLOOD COUNT 5.55 10^6/uL (4.00-5.40); WHITE BLOOD COUNT 8.8 10^3/uL (4.0-10.0)
[2022-02-22 15:49] LABS: ERYTHROCYTE SEDIMENTATION RATE 8 mm/hr (0-30)
[2022-02-22 15:58] LABS: ALBUMIN 3.8 GM/DL (3.2-5.2); ALT/SGPT 27 U/L (12-78); BILIRUBIN,TOTAL 0.9 MG/DL (0.2-1.0); BLOOD UREA NITROGEN 25 MG/DL (7-18); CARBON DIOXIDE LEVEL 25 MEQ/L (21-32); CHLORIDE LEVEL 106 MEQ/L (98-107); CREATININE FOR GFR 1.04 MG/DL (0.55-1.30); GLOMERULAR FILTRATION RATE 56.4 (>45); GLUCOSE, FASTING 91 MG/DL (70-100); POTASSIUM SERUM 4.5 MEQ/L (3.5-5.1); RHEUMATOID FACTOR QUANT < 10.0 IU/ML (<15.0); SODIUM LEVEL 136 MEQ/L (136-145); TOTAL PROTEIN 6.4 GM/DL (6.4-8.2)
[2022-02-22 16:45] LABS: FOLATE 22.2 NG/ML (>5.4); VITAMIN B12 LEVEL 389 PG/ML (247-911)
[2022-02-22 20:46] LABS: HEMOGLOBIN A1c 5.8 %
== END ==
LOC: M LAB 13:21
PROVIDERS: ATTEND Psychiatry & Neurology Neurology
DX: R41.3 Other amnesia (principal); Z79.899 Other long term (current) drug therapy

== ENCOUNTER → 2022-04-01 | Outpatient (CLI) | payer MEDICARE ==
[2022-04-01 12:29] LABS: BASO # 0.1 10^3/uL (0.0-0.2); EOS # 0.1 10^3/uL (0.0-0.5); EOS % 2.2 % (0.0-3.0); HEMATOCRIT 47.1 % (36.0-47.0); HEMOGLOBIN 15.1 g/dl (12.0-15.5); LYMPH # 1.8 10^3/uL (1.5-5.0); LYMPH % 29.2 % (24.0-44.0); MEAN CORPUSCULAR HEMOGLOBIN 28.4 pg (27.0-33.0); MEAN CORPUSCULAR HGB CONC 32.1 g/dl (32.0-36.5); MEAN CORPUSCULAR VOLUME 88.5 fl (80.0-96.0); MONO # 0.6 10^3/uL (0.0-0.8); MONO % 9.1 % (2.0-8.0); NEUTROPHILS # 3.6 10^3/uL (1.5-8.5); NEUTROPHILS % 58.2 % (36.0-66.0); PLATELET COUNT, AUTOMATED 323 10^3/uL (150-450); RED BLOOD COUNT 5.32 10^6/uL (4.00-5.40); WHITE BLOOD COUNT 6.3 10^3/uL (4.0-10.0)
[2022-04-01 12:51] LABS: RHEUMATOID FACTOR QUANT 3.8 IU/ML (<14)
[2022-04-01 12:52] LABS: ALBUMIN 3.6 G/DL (3.2-5.2); ALKALINE PHOSPHATASE 98 U/L (46-116); ALT/SGPT 22 U/L (7.0-40); AST/SGOT 27 U/L (<34); BILIRUBIN,TOTAL 0.7 MG/DL (0.3-1.2); BLOOD UREA NITROGEN 17 MG/DL (9-23); CALCIUM LEVEL 9.3 MG/DL (8.3-10.6); CARBON DIOXIDE LEVEL 28 MMOL/L (20-31); CHLORIDE LEVEL 104 MMOL/L (98-107); CREATININE FOR GFR 0.94 MG/DL (0.55-1.30); GLOMERULAR FILTRATION RATE > 60.0 (>45); GLUCOSE, FASTING 100 MG/DL (74-106); POTASSIUM SERUM 4.5 MMOL/L (3.5-5.1); SODIUM LEVEL 138 MMOL/L (136-145); TOTAL PROTEIN 6.1 G/DL (5.7-8.2); TOTAL PROTEIN 6.1 GM/DL (6.4-8.2)
[2022-04-01 12:59] LABS: ERYTHROCYTE SEDIMENTATION RATE 24 mm/hr (0-30)
[2022-04-01 13:00] LABS: HEMOGLOBIN A1c 5.4 % (4.0-6.0)
[2022-04-01 13:10] LABS: THYROID STIMULATING HORMONE 0.366 uIU/ML (0.55-4.78)
[2022-04-01 13:16] LABS: FOLATE 21.5 NG/ML (>5.4); VITAMIN B12 LEVEL 337 PG/ML (211-911)
== END ==
LOC: M LAB 11:26
PROVIDERS: ATTEND Psychiatry & Neurology Neurology
DX: R41.3 Other amnesia (principal)

== ENCOUNTER → 2022-05-12 | Outpatient (CLI) | payer MEDICARE | LOC: M WHC 07:46 | PROVIDERS: ATTEND Internal Medicine Pulmonary Disease | DX: Z12.31 Encounter for screening mammogram for malignant neoplasm of breast (principal) ==

== ENCOUNTER → 2022-05-12 | Outpatient (REF) | payer MEDICARE | LOC: M PLALAB 11:51 | PROVIDERS: ATTEND Nurse Practitioner Family | DX: Z12.4 Encounter for screening for malignant neoplasm of cervix (principal); N95.2 Postmenopausal atrophic vaginitis | CPT/HCPCS: 87624; G0123 ==

== ENCOUNTER → 2022-05-20 | Outpatient (CLI) | payer MEDICARE | LOC: M PLAIMG 14:05 | PROVIDERS: ATTEND Physician Assistant | DX: M25.511 Pain in right shoulder (principal) ==

== ENCOUNTER → 2022-09-09 | Outpatient (CLI) | payer MEDICARE ==
[~2022-09-09] MED LIST changes: +LORA1TAB23 PO; -LORA1TAB4 PO
[2022-09-09 11:09] LABS: BASO # 0.1 10^3/uL (0.0-0.2); BASO % 0.8 % (0.0-1.0); EOS # 0.2 10^3/uL (0.0-0.5); EOS % 2.5 % (0.0-3.0); HEMATOCRIT 46.1 % (36.0-47.0); HEMOGLOBIN 15.1 g/dl (12.0-15.5); LYMPH # 2.8 10^3/uL (1.5-5.0); LYMPH % 32.4 % (24.0-44.0); MEAN CORPUSCULAR HEMOGLOBIN 28.9 pg (27.0-33.0); MEAN CORPUSCULAR HGB CONC 32.8 g/dl (32.0-36.5); MEAN CORPUSCULAR VOLUME 88.1 fl (80.0-96.0); MONO # 0.8 10^3/uL (0.0-0.8); MONO % 9.3 % (2.0-8.0); NEUTROPHILS # 4.7 10^3/uL (1.5-8.5); NEUTROPHILS % 54.8 % (36.0-66.0); PLATELET COUNT, AUTOMATED 323 10^3/uL (150-450); RED BLOOD COUNT 5.23 10^6/uL (4.00-5.40); WHITE BLOOD COUNT 8.5 10^3/uL (4.0-10.0)
[2022-09-09 11:50] LABS: THYROID STIMULATING HORMONE 1.069 uIU/ML (0.55-4.78)
[2022-09-09 11:51] LABS: ALBUMIN 3.5 G/DL (3.2-5.2); BILIRUBIN,TOTAL 0.4 MG/DL (0.3-1.2); CALCIUM LEVEL 8.5 MG/DL (8.3-10.6); CHOLESTEROL RISK RATIO 2.53 (<5); CREATININE FOR GFR 1.06 MG/DL (0.55-1.30); HDL CHOLESTEROL 65.6 MG/DL (>40); LDL CHOLESTEROL 82.4 MG/DL (<100); NON-HDL-C 100.4 MG/DL; POTASSIUM SERUM 4.7 MMOL/L (3.5-5.1); TOTAL PROTEIN 5.7 G/DL (5.7-8.2)
[2022-09-09 11:53] LABS: FREE T4 0.98 NG/DL (0.89-1.76)
== END ==
LOC: M PLALAB 07:53
PROVIDERS: ATTEND Physician Assistant
DX: R07.9 Chest pain, unspecified (principal); E78.2 Mixed hyperlipidemia

== ENCOUNTER → 2023-05-10 | Outpatient (REF) | payer MEDICARE, MEDICAID ==
[2023-05-10 18:39] LABS: BASO # 0.1 10^3/uL (0.0-0.2); BASO % 0.7 % (0.0-1.0); EOS # 0.2 10^3/uL (0.0-0.5); EOS % 1.8 % (0.0-3.0); HEMATOCRIT 50.1 % (36.0-47.0); HEMOGLOBIN 16.2 g/dl (12.0-15.5); LYMPH # 3.2 10^3/uL (1.5-5.0); LYMPH % 35.1 % (24.0-44.0); MEAN CORPUSCULAR HEMOGLOBIN 28.9 pg (27.0-33.0); MEAN CORPUSCULAR HGB CONC 32.3 g/dl (32.0-36.5); MEAN CORPUSCULAR VOLUME 89.3 fl (80.0-96.0); MONO # 0.7 10^3/uL (0.0-0.8); MONO % 7.9 % (2.0-8.0); NEUTROPHILS % 54.3 % (36.0-66.0); PLATELET COUNT, AUTOMATED 339 10^3/uL (150-450); RED BLOOD COUNT 5.61 10^6/uL (4.00-5.40); WHITE BLOOD COUNT 9.1 10^3/uL (4.0-10.0)
[2023-05-10 18:52] LABS: HEMOGLOBIN A1c 5.6 % (4.0-6.0)
[2023-05-10 18:55] LABS: ALBUMIN 3.8 G/DL (3.2-5.2); BILIRUBIN,TOTAL 0.6 MG/DL (0.3-1.2); CALCIUM LEVEL 9.1 MG/DL (8.3-10.6); CHOLESTEROL RISK RATIO 3.02 (<5); CREATININE FOR GFR 1.03 MG/DL (0.55-1.30); GLOMERULAR FILTRATION RATE 56.9 (>45); HDL CHOLESTEROL 67.2 MG/DL (>40); NON-HDL-C 135.8 MG/DL; POTASSIUM SERUM 4.9 MMOL/L (3.5-5.1); TOTAL PROTEIN 6.5 G/DL (5.7-8.2)
[2023-05-10 18:57] LABS: FREE T4 1.12 NG/DL (0.89-1.76); THYROID STIMULATING HORMONE 5.251 uIU/ML (0.55-4.78)
== END ==
LOC: M LABDRAWP 17:33
PROVIDERS: ATTEND Physician Assistant
DX: E66.09 Other obesity due to excess calories (principal); E03.9 Hypothyroidism, unspecified; E78.2 Mixed hyperlipidemia; Z79.899 Other long term (current) drug therapy

== ENCOUNTER → 2023-08-10 | Outpatient (CLI) | payer MEDICARE, MEDICAID ==
[2023-08-10 13:26] LABS: BASO # 0.1 10^3/uL (0.0-0.2); BASO % 0.9 % (0.0-1.0); EOS # 0.2 10^3/uL (0.0-0.5); EOS % 2.4 % (0.0-3.0); HEMATOCRIT 45.1 % (36.0-47.0); HEMOGLOBIN 14.9 g/dl (12.0-15.5); LYMPH # 2.5 10^3/uL (1.5-5.0); LYMPH % 32.1 % (24.0-44.0); MEAN CORPUSCULAR VOLUME 87.7 fl (80.0-96.0); MONO # 0.7 10^3/uL (0.0-0.8); MONO % 8.7 % (2.0-8.0); NEUTROPHILS # 4.4 10^3/uL (1.5-8.5); NEUTROPHILS % 55.6 % (36.0-66.0); PLATELET COUNT, AUTOMATED 329 10^3/uL (150-450); RED BLOOD COUNT 5.14 10^6/uL (4.00-5.40); WHITE BLOOD COUNT 7.8 10^3/uL (4.0-10.0)
[2023-08-10 13:29] LABS: ALBUMIN 3.6 G/DL (3.2-5.2); BILIRUBIN,TOTAL 0.5 MG/DL (0.3-1.2); CALCIUM LEVEL 8.9 MG/DL (8.3-10.6); CREATININE FOR GFR 1.05 MG/DL (0.55-1.30); FREE T4 1.04 NG/DL (0.89-1.76); GLOMERULAR FILTRATION RATE 55.7 (>45); PERCENT SATURATION 20.4 % (13.2-45.0); POTASSIUM SERUM 4.4 MMOL/L (3.5-5.1); TOTAL 25(OH) VITAMIN D 34.4 NG/ML (20.0-100.0)
[2023-08-10 13:31] LABS: THYROID STIMULATING HORMONE 7.023 uIU/ML (0.55-4.78)
[2023-08-10 13:45] LABS: HEMOGLOBIN A1c 5.6 % (4.0-6.0)
== END ==
LOC: M PLAIMG 10:12
PROVIDERS: ATTEND Physician Assistant
DX: Z00.00 Encounter for general adult medical examination without abnormal findings (principal); M79.602 Pain in left arm; E03.9 Hypothyroidism, unspecified; E78.2 Mixed hyperlipidemia; E66.09 Other obesity due to excess calories; Z79.890 Hormone replacement therapy; Z79.82 Long term (current) use of aspirin; Z79.899 Other long term (current) drug therapy; Z86.39 Personal history of other endocrine, nutritional and metabolic disease

== ENCOUNTER 2023-08-25 15:33 | Emergency (ER) | payer MEDICARE, MEDICAID ==
[~2023-08-25] VITALS: Ht 165.1 cm; Wt 92.7 kg
[2023-08-25 15:34] VITALS: BP 151/68; TEMP 97.4; O2SAT 94
[2023-08-25] MEDS ORDERED: CITA20TA7 (16:15)
== END 2023-08-25 18:47 | disposition left against medical advice (07) ==
LOC: M ED 15:33
DX: Z53.21 Procedure and treatment not carried out due to patient leaving prior to being seen by health care provider (principal)

== ENCOUNTER → 2024-07-13 | Outpatient (CLI) | payer MEDICARE, MEDICAID ==
[~2024-07-13] MED LIST changes: +CITA20TA7
== END ==
LOC: M WHC 14:44
PROVIDERS: ATTEND Family Medicine
DX: Z12.31 Encounter for screening mammogram for malignant neoplasm of breast (principal); Z13.820 Encounter for screening for osteoporosis